=== PATIENT | female | born 1955 ===

== ENCOUNTER 2024-09-03 02:18 | Outpatient (CLI) | payer MEDICARE, MEDICAID, SELFPAY ==
[2024-09-03 08:35] LABS: Abs Immature Grans 0.04 10^3/uL (0.0-0.06); Absolute Basophil Count 0.13 10^3/uL (0.0-0.2); Absolute Eosinophil Count 0.26 10^3/uL (0.0-0.7); Absolute Lymphocyte Count 2.39 10^3/uL (1.2-3.4); Absolute Monocyte Count 0.84 10^3/uL (0.1-0.8); Absolute Neutrophil Count 4.01 10^3/uL (1.2-6.7); Basophils % 1.7 %; Eosinophils % 3.4 %; HGB 8.8 g/dL (11.2-15.7); Immature Grans % 0.5 %; Lymphocytes % 31.2 %; MCHC 29.3 % (32.0-36.0); MCV 68 fL (80-95); MPV 8.5 fL (8.0-11.0); Neutrophils % 52.2 %; Platelet Count 276 10^3/uL (130-400); RBC 4.41 10^6/uL (3.93-5.22); RDW 18.3 % (11.7-14.6); RDW-SD 43.8 fL; WBC 7.67 10^3/uL (4.4-10.8)
[2024-09-03 08:57] LABS: Iron 13 ug/dL (50-170); Total Iron Binding Capacity 420 ug/dL (250-450); Transferrin Sat 3 % (15-50)
[2024-09-03 09:05] LABS: Anisocytosis 2+; Diff Comment RBC Morph Reviewed; Hypochromasia 2+; Microcytosis 2+; Poikilocytes 2+
[2024-09-03 09:19] LABS: ALT 18 U/L (14-59); AST 15 U/L (15-37); Albumin 3.3 g/dL (3.4-5.0); Alkaline Phosphatase 134 U/L (46-116); Anion Gap 7.2 mmol/L (3-11); BUN 16 mg/dL (7-18); Bilirubin, Total 0.17 mg/dL (0.2-1.0); CO2 32.8 mmol/L (21.0-32.0); CREATININE 0.7 mg/dL (0.55-1.02); Calcium 9.1 mg/dL (8.5-10.1); Chloride 98 mmol/L (98-107); Estimated GFR 95.32 (mL/min/1.73m2); Ferritin 7 ng/mL (8-252); Glucose 122 mg/dL (74-106); Potassium 4.6 mmol/L (3.5-5.1); Sodium 138 mmol/L (136-145); Total Protein 7.3 g/dL (6.4-8.2); Vitamin B12 1398 pg/mL (193-986)
== END 2024-09-03 02:19 | disposition home or self-care (01) ==
LOC: LBO 02:19
PROVIDERS: Visit Provider Internal Medicine Hematology & Oncology
DX: D47.3 Essential (hemorrhagic) thrombocythemia (principal)
CPT/HCPCS: 36415; 80053; 82607; 82728; 83540; 83550; 85025

== ENCOUNTER 2024-11-12 01:59 | Outpatient (CLI) | payer MEDICARE, MEDICAID, SELFPAY ==
[2024-11-12 09:02] LABS: Abs Immature Grans 0.06 10^3/uL (0.0-0.06); Absolute Basophil Count 0.14 10^3/uL (0.0-0.2); Absolute Eosinophil Count 0.33 10^3/uL (0.0-0.7); Absolute Lymphocyte Count 5.03 10^3/uL (1.2-3.4); Absolute Monocyte Count 1.18 10^3/uL (0.1-0.8); Absolute Neutrophil Count 5.95 10^3/uL (1.2-6.7); Basophils % 1.1 %; Eosinophils % 2.6 %; HGB 13.1 g/dL (11.2-15.7); Immature Grans % 0.5 %; Lymphocytes % 39.6 %; MCH 23.4 pg (27.0-33.0); MCHC 30.5 % (32.0-36.0); MCV 77 fL (80-95); MPV 9.2 fL (8.0-11.0); Monocytes % 9.3 %; Neutrophils % 46.9 %; RDW 27.7 % (11.7-14.6); RDW-SD 73.5 fL; WBC 12.69 10^3/uL (4.4-10.8)
[2024-11-12 09:26] LABS: Iron 167 ug/dL (50-170); Total Iron Binding Capacity 531 ug/dL (250-450); Transferrin Sat 31 % (15-50)
[2024-11-12 09:32] LABS: Anisocytosis 2+; Diff Comment Agrees w/ Instrument; Platelet Count 670 10^3/uL (130-400); Poikilocytes 2+
[2024-11-12 09:41] LABS: ALT 25 U/L (14-59); AST 23 U/L (15-37); Albumin 4.3 g/dL (3.4-5.0); Alkaline Phosphatase 129 U/L (46-116); BUN 14 mg/dL (7-18); Bilirubin, Total 0.25 mg/dL (0.2-1.0); CREATININE 0.7 mg/dL (0.55-1.02); Calcium 10.4 mg/dL (8.5-10.1); Chloride 96 mmol/L (98-107); Estimated GFR 94.73 (mL/min/1.73m2); Ferritin 27 ng/mL (8-252); Potassium 3.2 mmol/L (3.5-5.1); Sodium 141 mmol/L (136-145); Total Protein 8.5 g/dL (6.4-8.2); Vitamin B12 1022 pg/mL (193-986)
[2024-11-12 09:54] LABS: Glucose 34 mg/dL (74-106)
== END 2024-11-12 02:00 | disposition home or self-care (01) ==
LOC: LBO 01:59
PROVIDERS: Visit Provider Internal Medicine Hematology & Oncology
DX: D47.3 Essential (hemorrhagic) thrombocythemia (principal)
CPT/HCPCS: 36415; 80053; 82607; 82728; 83540; 83550; 85025

== ENCOUNTER 2025-09-02 01:55 | Outpatient (CLI) | payer MEDICARE, MEDICAID, SELFPAY ==
[2025-09-02 11:35] LABS: Abs Immature Grans 0.04 10^3/uL (0.0-0.06); HCT 38.9 % (36.0-46.0); HGB 12.3 g/dL (11.2-15.7); Immature Grans % 0.5 %; MCH 29.6 pg (27.0-33.0); MCHC 31.6 % (32.0-36.0); MCV 94 fL (80-95); MPV 9.0 fL (8.0-11.0); RBC 4.15 10^6/uL (3.93-5.22); RDW 18.6 % (11.7-14.6); RDW-SD 63.7 fL; WBC 7.85 10^3/uL (4.4-10.8)
[2025-09-02 11:55] LABS: Platelet Count 818 10^3/uL (130-400)
[2025-09-02 12:05] LABS: ALT 12 U/L (10-49); AST 17 U/L (<34); Albumin 4.5 g/dL (3.4-5.0); Alkaline Phosphatase 115 U/L (46-116); Anion Gap 8.1 mmol/L (3-11); BUN 18 mg/dL (9-23); Bilirubin, Total 0.20 mg/dL (0.2-1.2); CO2 31.7 mmol/L (20.0-31.0); Calcium 9.6 mg/dL (8.3-10.6); Chloride 97 mmol/L (98-107); Glucose 88 mg/dL (74-106); Potassium 4.8 mmol/L (3.5-5.1); Sodium 137 mmol/L (136-145); Total Protein 7.7 g/dL (5.7-8.2)
[2025-09-02 12:08] LABS: Ferritin 57 ng/mL (7-271)
[2025-09-02 12:09] LABS: Vitamin B12 561 pg/mL (211-911)
[2025-09-02 12:28] LABS: Iron 33 ug/dL (50-170)
[2025-09-02 12:29] LABS: Total Iron Binding Capacity 329 ug/dL (250-425); Transferrin Sat 10 % (15-50)
== END 2025-09-02 01:56 | disposition home or self-care (01) ==
PROVIDERS: Visit Provider Nurse Practitioner Adult Health
DX: D47.3 Essential (hemorrhagic) thrombocythemia (principal)
CPT/HCPCS: 36415; 80053; 82607; 82728; 83540; 83550; 85025